=== PATIENT | male | born 1965 | race Two or more races ===

== ENCOUNTER 2018-11-17 17:55 | Emergency (ER) | payer SELFPAY ==
[~2018-11-17] VITALS: Ht 172.7 cm; Wt 72.6 kg
[2018-11-17 20:57] VITALS: BP 99/78
== END 2018-11-17 23:30 | disposition home or self-care (01) ==
LOC: ER 17:57
DX: F10.129 Alcohol abuse with intoxication, unspecified (principal); I10 Essential (primary) hypertension; Z60.2 Problems related to living alone; Y90.9 Presence of alcohol in blood, level not specified